=== PATIENT | female | born 1985 | race Caucasian/White ===

== ENCOUNTER 2016-12-24 10:46 | Emergency (ER) | payer OTHER ==
--- NOTE | 2016-12-24 11:28 | UCPHY ---
H & P Patient Type: New Chief Complaint Nursing Narrative: c/o URI/S/S with Rt. flank pain x 4 days HPI/ROS: Chief complaint: Cold symptoms History of present illness: This is a 31-year-old female who presents to the clinic for evaluation of cold symptoms. Patient reports she has been sick for the last week and half. Patient reports sore throat, runny nose, nasal congestion, ear pressure and pain, chest congestion and cough. She denies precipitating factors. She denies alleviating factors. She states a few days ago she also started to develop right-sided low back pain. Again she denies precipitating factors. She denies other associated signs or symptoms including no dysuria, no hematuria, no frequency, no hesitancy. She denies fevers, body aches or trouble breathing. Review of systems: A 10 point review of systems was obtained and other than described above was negative - Personal History LMP (Females 10-55): Over 28 Days Ago - Medical/Surgical History Other PMH: denies - Family History Significant Family History: Other - Social History Smoking Status: Never smoked - Physical Exam Exam: General Appearance: Alert, nontoxic. Eyes: Pupils equal and round no injection. ENT: Tympanic membranes, external auditory canals, external ears and surrounding soft tissue including over the mastoids are unremarkable. Nasopharynx is not injected. There is no rhinorrhea. Oropharynx is mildly injected. There is no edema. There is no exudate. There is no asymmetry. The uvula is midline. No elevation of the tongue. There is no hoarseness, no drooling, no trismus, no stridor. Respiratory: Chest is non tender, lungs are clear to auscultation. Cardiac: regular rate and rhythm Musculoskeletal: Neck is supple and non tender. Mild discomfort on light touch to the right lower back. Extremities have full range of motion and are non tender. Gastrointestinal: Bowel sounds normal. Abdomen is soft, nondistended. Genitourinary: No CVA tenderness Skin: No rashes or lesions. Neurological: Alert and oriented x4. No meningismus. Ambulating well. Constitutional: Initial Vital Signs Temperature (C) 36.6 C 12/24/16 11:19 Heart Rate 78 12/24/16 11:19 Respiratory Rate 18 12/24/16 11:19 Blood Pressure 122/62 H 12/24/16 11:19 O2 Sat (%) 97 12/24/16 11:19 O2 Delivery Mode Room Air Allergies/Adverse Reactions: Penicillins Allergy (Verified 07/02/16 08:09) Sulfa (Sulfonamide Antibiotics) Allergy (Verified 07/02/16 08:09) Home Medications: Medication Instructions Recorded Iron Polysacch/Iron Heme Polyp 28 mg PO BID 07/02/16 [Bifera] Vit27&Calcium/Iron/FA 1 each PO DAILY 07/02/16 [] Docusate Sodium [Colace 100 MG (*)] 100 mg PO BID PRN #0 cap 07/20/16 Hydrocodone/APAP 5/325 [Wann 1 - 2 tab PO Q4 PRN #0 tab 07/20/16 5/325 (*)] Ibuprofen [Motrin (*)] 600 mg PO Q6 PRN #0 tab 07/20/16 Iron Polysacch/Iron Heme Polyp 28 mg PO DAILY #0 tab 07/20/16 [Bifera] Medical Decision Making ED Course/Re-evaluation: Patient seen under the supervision of my secondary supervising physician Dr. Tuan Eller. Patient presents to the clinic for evaluation of cold symptoms. Patient is nontoxic. She is afebrile and vital signs are stable. She does appear to be suffering from a viral syndrome. Strep swab is negative. Flu swab is negative. She is complaining of some right lower back pain. She is tender to light palpation. I am not convinced urinalysis is consistent with urinary tract infection, certainly could be contaminant. She has no urinary symptoms. I do not believe she needs to be started on antibiotics at this time. We have discussed allowing a culture to grow out to see if antibiotics are warranted. No evidence of nephrolithiasis without blood in urine. Patient is discharged home. Home care is discussed. We have talked about symptomatic care with medications but she is breast-feeding and has declined medications here. She is asked to follow up with a primary care doctor for recheck. Strict return precautions are given. Patient voiced understanding and agreement with plan. Differential Diagnosis: Included but not limited to pharyngitis, strep pharyngitis, tonsillitis, influenza as well as musculoskeletal pain, urinary tract infection, nephrolithiasis - Data Points Laboratory Results: Laboratory Results 12/24/16 12:50 12/24/16 12:53 12/24/16 12/24/16 12/24/16 Unknown 12:53 12:50 WBC 7.53 10^3/uL (3.80-9.50) RBC 5.35 H 10^6/uL (4.18-5.33) Hgb 13.8 g/dL (12.6-16.3) Hct 42.5 % (38.0-47.0) MCV 79.4 L fL (81.5-99.8) MCH 25.8 L pg (27.9-34.1) MCHC 32.5 g/dL (32.4-36.7) RDW 15.7 H % (11.5-15.2) Plt Count 259 10^3/uL (150-400) MPV 10.6 fL (8.7-11.7) Neut % (Auto) 67.9 % (39.3-74.2) Lymph % (Auto) 22.2 % (15.0-45.0) [place] % (Auto) 7.2 % (4.5-13.0) Eos % (Auto) 2.1 % (0.6-7.6) Baso % (Auto) 0.3 % (0.3-1.7) Nucleat RBC Rel Count 0.0 % (0.0-0.2) Absolute Neuts (auto) 5.12 10^3/uL (1.70-6.50) Absolute Lymphs (auto) 1.67 10^3/uL (1.00-3.00) Absolute Monos (auto) 0.54 10^3/uL (0.30-0.80) Absolute Eos (auto) 0.16 10^3/uL (0.03-0.40) Absolute Basos (auto) 0.02 10^3/uL (0.02-0.10) Absolute Nucleated RBC 0.00 10^3/uL (0-0.01) Immature Gran % 0.3 % (0.0-1.1) Immature Gran # 0.02 10^3/uL (0.00-0.10) Sodium 143 mEq/L (134-144) Potassium 3.6 mEq/L (3.5-5.2) Chloride 103 mEq/L (97-110) Carbon Dioxide 27 mEq/l (22-31) Anion Gap 13 mEq/L (8-16) BUN 9 mg/dL (7-23) Creatinine 0.6 mg/dL (0.6-1.0) Estimated GFR > 60 Glucose 78 mg/dL (70-100) Calcium 9.2 mg/dL (8.5-10.4) Beta HCG, Qual NEGATIVE Urine Color Urine Appearance Urine pH Ur Specific [place] Urine Protein Urine Ketones Urine Blood Urine Nitrate Urine Bilirubin Urine Urobilinogen Ur Leukocyte Esterase Urine RBC Urine WBC Ur Epithelial Cells Urine Bacteria Hyaline Casts Urine Mucus Urine Yeast Ur Culture Indicated? Urine Glucose Influenza Typ A,B (DFA) Group A Strep Screen Group A Strep DNA Pending 12/24/16 12/24/16 12:05 11:15 WBC RBC Hgb Hct MCV MCH MCHC RDW Plt Count MPV Neut % (Auto) Lymph % (Auto) [place] % (Auto) Eos % (Auto) Baso % (Auto) Nucleat RBC Rel Count Absolute Neuts (auto) Absolute Lymphs (auto) Absolute Monos (auto) Absolute Eos (auto) Absolute Basos (auto) Absolute Nucleated RBC Immature Gran % Immature Gran # Sodium Potassium Chloride Carbon Dioxide Anion Gap BUN Creatinine Estimated GFR Glucose Calcium Beta HCG, Qual Urine Color YELLOW Urine Appearance CLEAR Urine pH 5.5 (5.0-7.5) Ur Specific [place] 1.025 (1.002-1.030) Urine Protein TRACE H (NEGATIVE) Urine Ketones TRACE H (NEGATIVE) Urine Blood NEGATIVE (NEGATIVE) Urine Nitrate NEGATIVE (NEGATIVE) Urine Bilirubin NEGATIVE (NEGATIVE) Urine Urobilinogen 0.2 EU (0.2-1.0) Ur Leukocyte Esterase NEGATIVE (NEGATIVE) Urine RBC 0-1 /hpf (0-3) Urine WBC 5-10 H /hpf (0-3) Ur Epithelial Cells 1+ /lpf (NONE-1+) Urine Bacteria TRACE H /hpf (NONE SEEN) Hyaline Casts 0-1 /lpf (0-1) Urine Mucus 3+ H /lpf (NONE-1+) Urine Yeast OCCASIONAL H /hpf (NONE SEEN) Ur Culture Indicated? INDICATED H (NI) Urine Glucose NEGATIVE (NEGATIVE) Influenza Typ A,B (DFA) NEGATIVE FOR FLU (NEGATIVE) Group A Strep Screen NEGATIVE (NEGATIVE) Group A Strep DNA Departure - Departure Disposition: Home, Routine, Self-Care Clinical Impression: Viral syndrome, Flank pain Condition: Good Instructions: Viral Syndrome (ED), Flank Pain (ED) Additional Instructions: Follow-up with your primary care doctor this week or early next week for recheck If symptoms worsen or new symptoms develop return to the emergency department immediately for recheck Referrals: IN STATE,. [Primary Care Provider] - As per Instructions - PQRS PQRS Measurement: N/A
[2016-12-24 12:15] LABS: COLOR YELLOW; LEUKOCYTE ESTERASE,URINE NEGATIVE (NEGATIVE); NITRITE,URINE NEGATIVE (NEGATIVE); PH,URINE 5.5 (5.0-7.5)
[2016-12-24 12:25] LABS: HYALINE CASTS 0-1 /lpf (0-1); MUCUS 3+ /lpf (NONE-1+)
[2016-12-24 12:26] LABS: BACTERIA TRACE /hpf (NONE SEEN); RBC,URINE 0-1 /hpf (0-3); YEAST OCCASIONAL /hpf (NONE SEEN)
[2016-12-24 13:18] LABS: ANION GAP 13 mEq/L (8-16); CALCIUM 9.2 mg/dL (8.5-10.4); CARBON DIOXIDE 27 mEq/l (22-31); CHLORIDE 103 mEq/L (97-110); CREATININE 0.6 mg/dL (0.6-1.0); GLOMERULAR FILTRATION RATE > 60; GLUCOSE 78 mg/dL (70-100); POTASSIUM 3.6 mEq/L (3.5-5.2); SODIUM 143 mEq/L (134-144)
[2016-12-24 13:23] LABS: % IMMATURE GRANULYOCYTES 0.3 % (0.0-1.1); ABSOLUTE IMMATURE GRANULOCYTES 0.02 10^3/uL (0.00-0.10); ADD DIFF? NO; ADD MORPH? NO; ADD SCAN? NO; ATYPICAL LYMPHOCYTE FLAG 60 (0-99); FRAGMENT RBC FLAG 20 (0-99); HEMATOCRIT 42.5 % (38.0-47.0); HEMOGLOBIN 13.8 g/dL (12.6-16.3); LEFT SHIFT FLG 0 (0-99); LIPEMIA HEMOLYSIS FLAG 80 (0-99); MEAN CELL HEMOGLOBIN 25.8 pg (27.9-34.1); MEAN CELL HEMOGLOBIN CONCENTR. 32.5 g/dL (32.4-36.7); MEAN CELL VOLUME 79.4 fL (81.5-99.8); MEAN PLATELET VOLUME 10.6 fL (8.7-11.7); PLATELET CLUMPS FLAG 10 (0-99); PLATELET COUNT 259 10^3/uL (150-400); RED BLOOD CELL COUNT 5.35 10^6/uL (4.18-5.33); RED CELL DISTRIBUTION WIDTH 15.7 % (11.5-15.2)
[2016-12-24 15:28] VITALS: BP 122/62; PULSE 78; RESP 18; TEMP 98; O2SAT 97
== END 2016-12-24 13:37 | disposition home or self-care (01) ==
LOC: CED 10:46
DX: B34.9 Viral infection, unspecified (principal); M54.5 Low back pain; Z88.0 Allergy status to penicillin; Z88.2 Allergy status to sulfonamides
CPT/HCPCS: 80048-PO; 81003-PO; 81015-PO; 84703-PO; 85025-PO; 87400-PO; 87880-PO; G0463-PO